=== PATIENT | female | born 1930 | race African-American/Black ===

== ENCOUNTER 2018-08-21 08:48 | Inpatient (IN) | payer MEDICARE, MEDICAID ==
[~2018-08-21] VITALS: Ht 152.4 cm; Wt 57.7 kg
[~2018-08-21 08:48] MED LIST: ASPI-518 PO; LANS15TA4 PO; TRAM50TA PO; VALS160T2 PO
[2018-08-21] MEDS ORDERED: SODIUM CHLORIDE 0.9% 1000ML BAG (SEPSIS BOLUS) IV ONE (09:30)
[2018-08-21 09:59] LABS: BASOPHILS % 0.3 % (0.0-2.0); EOSINOPHILS % 0.5 % (0.0-5.0); HEMATOCRIT. 32.1 % (36.0-48.0); HEMOGLOBIN. 10.5 g/dL (12.0-16.0); LYMPHOCYTES % 25.4 % (20.0-50.0); MEAN CORPUSCULAR HEMOGLOBIN 29.3 pg (28.0-32.0); MEAN PLATELET VOLUME 8.9 fl (7.4-10.4); MONOCYTES % 6.8 % (2.0-8.0); PLATELET 242 x1000/uL (130-400); RED BLOOD CELL COUNT 3.57 mill/uL (4.2-5.4); RED CELL DISTRIBUTION WIDTH 15.3 % (11.6-14.6)
[2018-08-21 10:01] LABS: CHLORIDE 102 mEq/L (98-107)
[2018-08-21 10:05] LABS: INR 0.9; PROTHROMBIN TIME 9.4 sec (9.1-11.1)
[2018-08-21 12:27] LABS: CLARITY URINE CLEAR (CLEAR); COLOR URINE YELLOW (YELLOW); KETONES URINE NEGATIVE (NEGATIVE); LEUKOCYTE ESTERASE URINE TRACE (NEGATIVE); NITRITE URINE NEGATIVE (NEGATIVE); OCCULT BLOOD URINE NEGATIVE (NEGATIVE); PH URINE 7.5 (4.5-8.0); PROTEIN URINE NEGATIVE (NEGATIVE); SPECIFIC GRAVITY URINE 1.005 (1.005-1.030); UROBILINOGEN URINE 0.2 E.U./dL (0.2-1.0)
[2018-08-21] MEDS ORDERED: LEVOFLOXACIN 750MG PREMIX 150 ML IV ONE (13:30)
[2018-08-21] MEDS ORDERED: CLONIDINE 0.1MG TABLET PO PRN (14:15)
[2018-08-21] MEDS ORDERED: ONDANSETRON HCL 4MG/2ML INJ IV PRN (14:15)
[2018-08-21] MEDS ORDERED: MAGNESIUM/ALUMINUM HYDROXIDE/SIMETHICONE 30ML UDC PO PRN (14:15)
[2018-08-21] MEDS ORDERED: ACETAMINOPHEN 325MG TABLET PO PRN (14:15)
[2018-08-21] MEDS ORDERED: DOCUSATE SODIUM 100MG CAPSULE PO PRN (14:15)
[2018-08-21] MEDS ORDERED: NITROGLYCERIN 0.4MG TABLET SL SL PRN (14:15)
[2018-08-21] MEDS ORDERED: TRAMADOL 50MG TABLET PO PRN (14:15)
[2018-08-21] MEDS ORDERED: GUAIFENESIN 200MG/10ML SUGAR FREE UDC PO PRN (14:15)
[2018-08-21] MEDS ORDERED: IPRATROPIUM/ALBUTEROL 0.5-3(2.5)MG/3ML NEB INH PRN (14:15)
[2018-08-21 17:30] VITALS: BP 176/76
[2018-08-21 18:00] VITALS: BP 176/76
[2018-08-21] MEDS: AMLODIPINE 10MG TABLET PO SCH (18:00)
[2018-08-21 18:30] VITALS: BP 179/74
[2018-08-21] MEDS ORDERED: CEFTRIAXONE 1 G PREMIX 50 ML IV SCH (20:00)
[2018-08-21 20:05] VITALS: BP 176/90
[2018-08-21] MEDS: ASCORBIC ACID 500 MG TABLET PO SCH (21:50)
[2018-08-21] MEDS: FAMOTIDINE 20MG TABLET PO SCH (21:50)
[2018-08-22] VITALS (9 sets, daily range): BP systolic 85–119; BP diastolic 45–61
[2018-08-22 00:35] LABS: CREATINE KINASE 103 IU/L (26-192)
[2018-08-22 00:36] LABS: CREATINE KINASE MB FRACTION 1.8 ng/mL (0.5-3.6)
[2018-08-22 08:47] LABS: CREATINE KINASE 123 IU/L (26-192)
[2018-08-22 08:48] LABS: CREATINE KINASE MB FRACTION 1.7 ng/mL (0.5-3.6)
[2018-08-22] MEDS: AMLODIPINE 10MG TABLET PO SCH (09:00)
[2018-08-22] MEDS: ZINC SULFATE 220 MG ( 50 ) CAPSULE PO SCH (10:17)
[2018-08-22] MEDS: ASCORBIC ACID 500 MG TABLET PO SCH ×2 (10:17→20:37)
[2018-08-22] MEDS: ASPIRIN 325MG EC TABLET PO SCH (10:18)
[2018-08-22] MEDS: ENOXAPARIN 30MG/0.3ML SYR SUBCUT SCH ×2 (10:19→18:30)
[2018-08-22] MEDS ORDERED: LEVOFLOXACIN 250MG PREMIX 50 ML IV SCH (11:00)
[2018-08-22] MEDS ORDERED: TRAMADOL 50MG TABLET PO ONE (12:01)
[2018-08-22] MEDS: CEFTRIAXONE 1 G PREMIX 50 ML IV SCH (18:30)
[2018-08-22] MEDS: TRAMADOL 50MG TABLET PO PRN (20:36)
[2018-08-22] MEDS: FAMOTIDINE 20MG TABLET PO SCH (20:37)
[2018-08-23] VITALS: BP 122/65
[2018-08-23 04:00] VITALS: BP 136/54
[2018-08-23 08:00] VITALS: BP 132/54
[2018-08-23] MEDS: TRAMADOL 50MG TABLET PO PRN ×3 (09:08→21:26)
[2018-08-23] MEDS: ASCORBIC ACID 500 MG TABLET PO SCH ×2 (09:09→21:11)
[2018-08-23] MEDS: AMLODIPINE 10MG TABLET PO SCH (09:09)
[2018-08-23] MEDS: ASPIRIN 325MG EC TABLET PO SCH (09:09)
[2018-08-23] MEDS: ZINC SULFATE 220 MG ( 50 ) CAPSULE PO SCH (09:09)
[2018-08-23 12:00] VITALS: BP 126/56
[2018-08-23] MEDS: LEVOFLOXACIN 250MG PREMIX 50 ML IV SCH (14:00)
[2018-08-23 16:00] VITALS: BP 116/53
[2018-08-23] MEDS: CEFTRIAXONE 1 G PREMIX 50 ML IV SCH (18:12)
[2018-08-23] MEDS: ENOXAPARIN 30MG/0.3ML SYR SUBCUT SCH (18:15)
[2018-08-23 20:00] VITALS: BP 152/53
[2018-08-23] MEDS: FAMOTIDINE 20MG TABLET PO SCH (21:11)
[2018-08-24] VITALS (7 sets, daily range): BP systolic 115–149; BP diastolic 61–69
[2018-08-24] MEDS: AMLODIPINE 10MG TABLET PO SCH (09:14)
[2018-08-24] MEDS: ASPIRIN 325MG EC TABLET PO SCH (09:14)
[2018-08-24] MEDS: ASCORBIC ACID 500 MG TABLET PO SCH (09:14)
[2018-08-24] MEDS: ZINC SULFATE 220 MG ( 50 ) CAPSULE PO SCH (09:14)
[2018-08-24] MEDS: TRAMADOL 50MG TABLET PO PRN ×2 (09:18→15:18)
[2018-08-24] MEDS: LEVOFLOXACIN 250MG PREMIX 50 ML IV SCH (12:13)
== END 2018-08-24 15:45 | disposition home health service (06) | DRG 689 ==
LOC: ER 08:54 → 6WST 13:40 → SUPCPDRO 14:00 → ENRESERV 15:23
PROVIDERS: ADMIT Internal Medicine; ATTEND Internal Medicine
DX: N39.0 Urinary tract infection, site not specified (principal); G92 Toxic encephalopathy; I10 Essential (primary) hypertension; E11.9 Type 2 diabetes mellitus without complications; F03.90 Unspecified dementia, unspecified severity, without behavioral disturbance, psychotic disturbance, mood disturbance, and anxiety; K21.9 Gastro-esophageal reflux disease without esophagitis; Z79.899 Other long term (current) drug therapy; Z88.8 Allergy status to other drugs, medicaments and biological substances; Z79.82 Long term (current) use of aspirin
CPT/HCPCS: 36415; 71045; 73502; 80061; 82550; 82553; 82962; 83036; 83605; 84145; 84484; 87077; 87186; 93005; 93306; 93970; 96365; 96367; 97162; 97166; 99285; C1893; J0696; J1650; J1956; J7030; J7040

== ENCOUNTER 2018-11-12 17:59 | Emergency (ER) | payer MEDICARE, MEDICAID ==
[~2018-11-12] VITALS: Ht 165.1 cm; Wt 75.0 kg
[2018-11-12] MEDS ORDERED: TRAMADOL 50MG TABLET PO ONE ×3 (19:30→23:45)
[2018-11-12 19:46] LABS: BASOPHILS % 0.2 % (0.0-2.0); EOSINOPHILS % 1.7 % (0.0-5.0); HEMATOCRIT. 28.4 % (36.0-48.0); HEMOGLOBIN. 9.4 g/dL (12.0-16.0); LYMPHOCYTES % 20.4 % (20.0-50.0); MEAN CORPUSCULAR HEMOGLOBIN 29.7 pg (28.0-32.0); MEAN CORPUSCULAR VOLUME 89.8 fL (81.0-99.0); MEAN PLATELET VOLUME 8.4 fl (7.4-10.4); MONOCYTES % 9.5 % (2.0-8.0); NEUTROPHILS % 68.2 % (40.0-76.0); PLATELET 188 x1000/uL (130-400); RED BLOOD CELL COUNT 3.16 mill/uL (4.2-5.4); RED CELL DISTRIBUTION WIDTH 15.3 % (11.6-14.6)
[2018-11-12 19:53] LABS: CHLORIDE 103 mEq/L (98-107)
[2018-11-12 19:55] LABS: PROTHROMBIN TIME 9.8 sec (9.1-11.1)
[2018-11-12] MEDS ORDERED: SODIUM CHLORIDE 0.9% 500 ML IV NR (23:15)
[2018-11-12] MEDS ORDERED: TRAMADOL 50MG TABLET PO NR (23:15)
[2018-11-12 23:47] VITALS: BP 136/67
== END 2018-11-13 00:01 | disposition home or self-care (01) ==
LOC: ER 17:59
DX: S70.01XA Contusion of right hip, initial encounter (principal); S80.02XA Contusion of left knee, initial encounter; S80.01XA Contusion of right knee, initial encounter; E87.5 Hyperkalemia; I10 Essential (primary) hypertension; E11.9 Type 2 diabetes mellitus without complications; Z79.82 Long term (current) use of aspirin; Z88.8 Allergy status to other drugs, medicaments and biological substances; W01.0XXA Fall on same level from slipping, tripping and stumbling without subsequent striking against object, initial encounter; Z91.81 History of falling; Y93.89 Activity, other specified; Y92.018 Other place in single-family (private) house as the place of occurrence of the external cause
CPT/HCPCS: 36415; 71045; 73502; 73562; 83880; 84484; 93005; 99284

== ENCOUNTER 2019-04-10 04:39 | Emergency (ER) | payer MEDICARE, MEDICAID ==
[~2019-04-10] VITALS: Ht 162.6 cm; Wt 64.0 kg
[2019-04-10 04:41] VITALS: BP 122/82
[2019-04-10] MEDS ORDERED: SODIUM CHLORIDE 0.9% 1,000 ML IV ONE (05:02)
[2019-04-10] MEDS ORDERED: ONDANSETRON HCL 4MG/2ML INJ IV STA (05:02)
== END 2019-04-10 05:03 | disposition left against medical advice (07) ==
LOC: ER 04:39
DX: F03.90 Unspecified dementia, unspecified severity, without behavioral disturbance, psychotic disturbance, mood disturbance, and anxiety (principal); Z53.21 Procedure and treatment not carried out due to patient leaving prior to being seen by health care provider
CPT/HCPCS: J7030